=== PATIENT | female | born 1995 | race Caucasian/White ===

== ENCOUNTER 2019-07-03 02:50 | Emergency (ER) | payer MEDICAID, OTHER ==
[~2019-07-03] VITALS: Ht 154.9 cm; Wt 81.0 kg
[~2019-07-03 02:50] MED LIST: COUGH SYRUP
[2019-07-03 06:42] LABS: CLARITY URINE CLOUDY (CLEAR); COLOR URINE YELLOW (YELLOW); KETONES URINE NEGATIVE (NEGATIVE); LEUKOCYTE ESTERASE URINE NEGATIVE (NEGATIVE); NITRITE URINE POSITIVE (NEGATIVE); OCCULT BLOOD URINE TRACE (NEGATIVE); PROTEIN URINE NEGATIVE (NEGATIVE); SPECIFIC GRAVITY URINE 1.016 (1.005-1.030); UROBILINOGEN URINE 0.2 E.U./dL (0.2-1.0)
[2019-07-03 06:54] LABS: BASOPHILS % 0.5 % (0.0-2.0); EOSINOPHILS % 0.3 % (0.0-5.0); HEMATOCRIT. 42.6 % (36.0-48.0); HEMOGLOBIN. 14.8 g/dL (12.0-16.0); LYMPHOCYTES % 10.5 % (20.0-50.0); MEAN CORPUSCULAR HEMOGLOBIN 31.1 pg (28.0-32.0); MEAN CORPUSCULAR VOLUME 89.3 fL (81.0-99.0); MEAN PLATELET VOLUME 7.7 fl (7.4-10.4); MONOCYTES % 4.5 % (2.0-8.0); NEUTROPHILS % 84.2 % (40.0-76.0); PLATELET 280 x1000/uL (130-400); RED BLOOD CELL COUNT 4.77 mill/uL (4.2-5.4); RED CELL DISTRIBUTION WIDTH 12.5 % (11.6-14.6)
[2019-07-03 07:01] LABS: CHLORIDE 107 mEq/L (98-107)
[2019-07-03 08:28] VITALS: BP 115/68
== END 2019-07-03 08:51 | disposition home or self-care (01) ==
LOC: ER 02:50
DX: R10.9 Unspecified abdominal pain (principal); K76.0 Fatty (change of) liver, not elsewhere classified; Z88.0 Allergy status to penicillin
CPT/HCPCS: 36415; 76705; 80053; 81003; 81025; 85025; 99284

== ENCOUNTER 2019-07-19 10:27 | Emergency (ER) | payer MEDICAID ==
[~2019-07-19] VITALS: Ht 154.9 cm; Wt 81.0 kg
[2019-07-19] MEDS ORDERED: SODIUM CHLORIDE 0.9% 1,000 ML IV ONE (10:57)
[2019-07-19] MEDS ORDERED: IBUPROFEN 800MG TABLET PO ONE (11:00)
[2019-07-19 11:39] LABS: HEMATOCRIT. 45.2 % (36.0-48.0); HEMOGLOBIN. 15.8 g/dL (12.0-16.0); MEAN CORPUSCULAR HEMOGLOBIN 31.3 pg (28.0-32.0); MEAN CORPUSCULAR VOLUME 89.6 fL (81.0-99.0); MEAN PLATELET VOLUME 7.9 fl (7.4-10.4); PLATELET 235 x1000/uL (130-400); RED BLOOD CELL COUNT 5.04 mill/uL (4.2-5.4); RED CELL DISTRIBUTION WIDTH 12.6 % (11.6-14.6)
[2019-07-19 11:54] LABS: CHLORIDE 105 mEq/L (98-107)
[2019-07-19 12:00] LABS: PLATELET ESTIMATE NORMAL
[2019-07-19] MEDS ORDERED: ACETAMINOPHEN 325MG TABLET PO STA (12:49)
[2019-07-19 12:55] LABS: CLARITY URINE CLOUDY (CLEAR); COLOR URINE YELLOW (YELLOW); KETONES URINE NEGATIVE (NEGATIVE); LEUKOCYTE ESTERASE URINE NEGATIVE (NEGATIVE); NITRITE URINE POSITIVE (NEGATIVE); OCCULT BLOOD URINE NEGATIVE (NEGATIVE); PROTEIN URINE NEGATIVE (NEGATIVE); SPECIFIC GRAVITY URINE 1.022 (1.005-1.030)
[2019-07-19 13:53] VITALS: BP 118/69
== END 2019-07-19 13:54 | disposition home or self-care (01) ==
LOC: ER 11:01
DX: J09.X2 Influenza due to identified novel influenza A virus with other respiratory manifestations (principal); N39.0 Urinary tract infection, site not specified
CPT/HCPCS: 36415; 71045; 80053; 81003; 81025; 85025; 87070; 87430; 87804; 93005; 99284; J7030